=== PATIENT | male | born 1960 | race Caucasian/White ===

== ENCOUNTER 2024-06-14 06:24 | Day surgery (SDC) | payer OTHER, SELFPAY ==
[2024-06-14] VITALS (10 sets, daily range): BP systolic 122–168; BP diastolic 30–90; BMI 23.5
[2024-06-14] MEDS: CELEBREX 200 MG PO (10:42)
[2024-06-14] MEDS: TYLENOL 1000 MG PO (10:43)
[2024-06-14] MEDS: DEMEROL 12.5 MG IV (17:05)
== END 2024-06-14 18:27 | disposition home or self-care (01) ==
LOC: SDS 06:24
PROVIDERS: ATTENDING PHYSICIAN Specialist
PROC: 0RNJ4ZZ Release Right Shoulder Joint, Percutaneous Endoscopic Approach (ICD-10-PCS; 2024-06-14)
PROC: 0LS34ZZ Reposition Right Upper Arm Tendon, Percutaneous Endoscopic Approach (ICD-10-PCS; 2024-06-14)
DX: M75.101 Unspecified rotator cuff tear or rupture of right shoulder, not specified as traumatic (principal); M75.21 Bicipital tendinitis, right shoulder
CPT/HCPCS: 29827; 29828; 29826